=== PATIENT | male | born 1980 | race Caucasian/White ===

== ENCOUNTER 2018-05-15 19:21 | Emergency (ER) | payer MEDICAID ==
[~2018-05-15] VITALS: Ht 172.7 cm; Wt 109.0 kg
[2018-05-15] MEDS ORDERED: IBUPROFEN 600MG TABLET PO STA (22:52)
[2018-05-15] MEDS ORDERED: LIDOCAINE HCL/PF 1% 2ML VIAL INFIL ONE (23:00)
[2018-05-15] MEDS ORDERED: BACITRACIN ZINC OINT UDPKT TOP ONE (23:00)
[2018-05-16] MEDS ORDERED: LIDOCAINE HCL/PF 1% 10 MG/ML 5ML VIAL IJ NR (01:15)
[2018-05-16 01:29] VITALS: BP 132/79
== END 2018-05-16 03:04 | disposition home or self-care (01) ==
LOC: ER 19:49
DX: S61.412A Laceration without foreign body of left hand, initial encounter (principal); S61.218A Laceration without foreign body of other finger without damage to nail, initial encounter; X99.8XXA Assault by other sharp object, initial encounter; Y93.89 Activity, other specified; Y92.89 Other specified places as the place of occurrence of the external cause; F17.210 Nicotine dependence, cigarettes, uncomplicated; R03.0 Elevated blood-pressure reading, without diagnosis of hypertension
CPT/HCPCS: 12002; 73130; 99284; J3490; Z7610